=== PATIENT | female | born 1940 | race African-American/Black ===

== ENCOUNTER 2021-12-31 15:38 | Observation (INO) ==
[2021-12-31 16:36] LABS: Basophils % 0.6 % (0.0-0.8); Eosinophils # 0.1 10*3/uL (0.0-0.87); Hematocrit 34.6 VOL% (42.0-52.0); Hemoglobin 10.2 GM/DL (14.0-18.0); Immature Granulocytes % 0.6 %; Immature Granulocytes Absolute 0.04 #; Lymphocytes # 1.1 10*3/uL (1.4-4.0); Lymphocytes % 15.5 % (21.2-54.2); Mean Corpuscular HGB Conc 29.5 GM/DL (32-36); Mean Corpuscular Volume 94.5 FL (87-102); Mean Platelet Volume 10.8 FL (9.6-12.0); Monocytes # 0.5 10*3/uL (0.11-0.8); Monocytes % 6.7 % (1.7-12.7); Neutrophils % 74.6 % (38.7-73.9); Platelet Count 228 T/CUMM (130-400); Red Blood Count 3.66 MC/CUMM (3.8-5.5); Red Cell Distribution Width 14.8 % (9.3-17.3)
[2021-12-31 16:44] LABS: PT Patient Result 11.2 SECS (10.5-12.0)
[2021-12-31 16:52] LABS: Albumin 3.6 G/DL (3.4-5.0); Bilirubin,Total 0.4 MG/DL (0.20-1.00); Calcium 9.1 MG/DL (8.5-10.1); Osmolality,Calculated 285.5 MOS/KG (273-304); Potassium 4.1 MMOL/L (3.5-5.1); Total Protein 6.9 G/DL (6.4-8.2)
[2021-12-31] MEDS ORDERED: GLUCAGON 1 MG VIAL IM PRN (17:53)
[2021-12-31] MEDS ORDERED: DEXTROSE 10% 250 ML BAG IV PRN (18:01)
[2021-12-31] MEDS: GABAPENTIN 100 MG CAPSULE PO SCH (21:41)
[2021-12-31] MEDS: MIDODRINE 5 MG TABLET PO SCH (21:41)
[2021-12-31] MEDS: HEPARIN 5,000 UNIT/1 ML VIAL SUBCUT SCH (21:41)
[2021-12-31] MEDS: INSULIN REGULAR 100 UNIT/ML SUBCUT SCH (21:42)
[2022-01-01] MEDS: MIDODRINE 5 MG TABLET PO SCH ×2 (08:44→16:16)
[2022-01-01] MEDS: GABAPENTIN 100 MG CAPSULE PO SCH ×2 (08:44→16:17)
[2022-01-01] MEDS: HEPARIN 5,000 UNIT/1 ML VIAL SUBCUT SCH (08:44)
[2022-01-01] MEDS: INSULIN REGULAR 100 UNIT/ML SUBCUT SCH ×3 (09:35→16:55)
[2022-01-01 10:02] LABS: Basophils % 0.3 % (0.0-0.8); Eosinophils # 0.1 10*3/uL (0.0-0.87); Hematocrit 33.3 VOL% (35.7-47.0); Hemoglobin 10.2 GM/DL (12.0-16.0); Immature Granulocytes % 0.5 %; Immature Granulocytes Absolute 0.03 #; Lymphocytes # 1.1 10*3/uL (1.4-4.0); Lymphocytes % 16.5 % (21.3-54.2); Mean Corpuscular HGB Conc 30.6 GM/DL (32-36); Mean Corpuscular Volume 90.2 FL (87-102); Mean Platelet Volume 11.1 FL (9.6-12.0); Monocytes # 0.6 10*3/uL (0.11-0.8); Monocytes % 9.6 % (1.7-12.7); Neutrophils % 71.1 % (38.7-73.9); Platelet Count 242 T/CUMM (130-400); Red Blood Count 3.69 MC/CUMM (3.8-5.5); Red Cell Distribution Width 14.6 % (9.3-17.3); White Blood Count 6.4 T/CUMM (4-12)
[2022-01-01 10:20] LABS: Albumin 3.6 G/DL (3.4-5.0); Bilirubin,Total 0.4 MG/DL (0.20-1.00); Calcium 9.3 MG/DL (8.5-10.1); Osmolality,Calculated 281.1 MOS/KG (273-304); Potassium 3.9 MMOL/L (3.5-5.1); Total Protein 7.1 G/DL (6.4-8.2)
[2022-01-01 10:22] LABS: CKMB % 3.39 %
[2022-01-01 11:07] LABS: Hepatitis B Core IgM Quant < 0.05 Index; Hepatitis B Surface Ag Quant < 0.10 Index; Hepatitis B Surface Ag Result Non-Reactive (NonReactive); Hepatitis C Virus Ab Quant 0.05 Index; Hepatitis C Virus Ab Result Non-Reactive (NonReactive)
[2022-01-01] MEDS ORDERED: ACETAMINOPHEN 325 MG TABLET PO PRN (13:38)
[2022-01-01 16:54] VITALS: BP 153/76
[2022-01-01] MEDS ORDERED: METOPROLOL TARTRATE 25 MG TABLET PO SCH (21:00)
== END 2022-01-01 17:44 | disposition home or self-care (01) ==
LOC: N.EDINP 15:38 → N.ED 15:38 → SUATTDRO 17:53 → N.TELEN 18:37
PROVIDERS: ADMIT Internal Medicine; ATTEND Internal Medicine